=== PATIENT | female | born 1975 | race Caucasian/White ===

== ENCOUNTER → 2018-01-13 | Outpatient (CLI) | payer BC ==
[2004-09-04 09:43] VITALS: PULSE 80; TEMP 98.7
== END ==
LOC: MC.RAD 14:26
DX: Z12.31 Encounter for screening mammogram for malignant neoplasm of breast (principal); N64.89 Other specified disorders of breast; Z80.3 Family history of malignant neoplasm of breast

== ENCOUNTER → 2018-01-19 | Outpatient (CLI) | payer BC ==
[2004-09-04 09:43] VITALS: TEMP 98.7
== END ==
LOC: MC.RAD 12:55
DX: N64.89 Other specified disorders of breast (principal); Z80.3 Family history of malignant neoplasm of breast
CPT/HCPCS: G0279

== ENCOUNTER → 2018-01-26 | Outpatient (CLI) | payer BC ==
[2004-09-04 09:43] VITALS: TEMP 98.7
== END ==
LOC: MC.RAD 06:49
DX: N64.89 Other specified disorders of breast (principal); Z80.3 Family history of malignant neoplasm of breast; Z98.82 Breast implant status

== ENCOUNTER 2018-02-16 10:26 | Day surgery (SDC) | payer BC ==
[~2018-02-16] VITALS: Ht 167.6 cm; Wt 75.7 kg
[2018-02-16] MEDS ORDERED: ALDACTONE50 MG PO (11:52)
[2018-02-16] MEDS ORDERED: SYEDA 3 MG-0.031 TAB PO (11:53)
[2018-02-16 13:26] VITALS: BP 121/78; PULSE 70; TEMP 98.3
[2018-02-16 15:55] VITALS: BP 133/84; PULSE 68; TEMP 97.7
[2018-02-16] MEDS ORDERED: ULTRAM 50MG TAB50 MG PO (16:02)
[2018-02-16 16:10] VITALS: BP 133/88; PULSE 69
[2018-02-16 16:25] VITALS: BP 124/77; PULSE 62
[2018-02-16 16:43] VITALS: BP 129/88; PULSE 70; TEMP 97.4
== END 2018-02-16 16:45 | disposition home or self-care (01) ==
LOC: SDCO 10:26
DX: N60.92 Unspecified benign mammary dysplasia of left breast (principal); N60.22 Fibroadenosis of left breast; F32.9 Major depressive disorder, single episode, unspecified; K90.0 Celiac disease
CPT/HCPCS: J0690; J1885; J2704; J3010; J7120

== ENCOUNTER → 2020-04-03 | Outpatient (CLI) | payer BC ==
[~2020-04-03] MED LIST: ALDACTONE50 MG PO; SYEDA 3 MG-0.031 TAB PO; ULTRAM 50MG TAB50 MG PO
== END ==
LOC: MC.RAD 07:00
DX: Z12.31 Encounter for screening mammogram for malignant neoplasm of breast (principal); Z98.890 Other specified postprocedural states

== ENCOUNTER → 2022-05-12 | Outpatient (CLI) | payer BC | LOC: MC.RAD 09:04 | DX: Z12.31 Encounter for screening mammogram for malignant neoplasm of breast (principal) ==